=== PATIENT | male | born 1980 | race Caucasian/White ===

== ENCOUNTER 2018-03-14 12:15 | Emergency (ER) | payer BC ==
[2018-03-14 13:14] VITALS: BP 190/96
--- NOTE | 2018-03-14 13:31 | UC ---
Skin Complaint HPI - HPI Summary HPI Summary: 3 wks of worsening redness, pain in feet, skin cracking/dryness on tops of both feet. 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 - History of Current Complaint Chief Complaint: UCSkin Time Seen by Provider: 03/14/18 13:13 Stated Complaint: BILATERAL FOOT COMPLAINT Hx Obtained From: Patient Onset/Duration: Gradual Onset Current Severity: Moderate Pain Intensity: 4 Pain Scale Used: 0-10 Numeric Location: Foot (Right), Foot (Left) Character: Pain, Redness Aggravating Factor(s): Clothing, Touch Alleviating Factor(s): OTC Creams/Salves - Allergy/Home Medications Allergies/Adverse Reactions: Allergies Allergy/AdvReac Type Severity Reaction Status Date / Time Penicillins Allergy Unknown Verified 03/14/18 13:07 Reaction Details Home Medications: Home Medications Fluticasone NASAL SPRAY 50MCG* [Flonase NASAL SPRAY 50MCG*] 2 spray BOTH NARES DAILY 03/14/18 [History Confirmed 03/14/18] Review of Systems All Other Systems Reviewed And Are Negative: Yes Constitutional: Positive: Negative Skin: Positive: Rash, Other - cracked red skin on tops of both feet. Respiratory: Positive: Negative Cardiovascular: Positive: Negative Neurological: Positive: Negative PMH/Surg Hx/FS Hx/Imm Hx - Additional Past Medical History Additional PMH: chronic eczema-treatment triamcinolone. Endocrine History: Other - obesity Cardiovascular History: Hypertension - Surgical History Surgical History: Yes Surgery Procedure, Year, and Place: vasectomy. L index finger - Family History Known Family History: Positive: None - Social History Alcohol Use: None Substance Use Type: None Smoking Status (MU): Former Smoker When Did the Patient Quit Smoking/Using Tobacco: 10 years ago - Immunization History Most Recent Tetanus Shot: SPRING 2014 Physical Exam Triage Information Reviewed: Yes Appearance: Well-Appearing, No Pain Distress Vital Signs: Initial Vital Signs Temp 97.5 F 03/14/18 13:09 Pulse 94 03/14/18 13:09 Resp 16 03/14/18 13:09 BP 190/96 03/14/18 13:09 Pulse Ox 98 03/14/18 13:09 Vital Signs Reviewed: Yes Musculoskeletal Exam: Normal Skin: Positive: Breakdown - dorsal aspect bilateral feet, opened areas w/ erythema, tenderness. No purulent or clear draining. toes are spared. toenails normal. Course/Dx - Course Course Of Treatment: 3 wks hx of worsening eczema flare up now presenting w/ superificial infections. No signs of cellulitis at this point but tx'ing w/ antibx given severity of opened areas. PO short course of steroid burst , ibu for pain. Will refill triamcinolone for maintenance. Advised daily use of vaseline. he will be f/u w/ regular melting operator. also had elevated bp, we discussed importance of controlling this. he will f/u w/ pcp. no cardiac symptoms today. - Differential Diagnoses - Skin Complaint Differential Diagnoses: Cellulitis, Contact Dermatitis, Eczema, Impetigo, Lymphangitis, Viral Exanthem - Diagnoses Provider Diagnoses: superificial skin infection (bilateral feet), Hypertension. Discharge - Sign-Out/Discharge Documenting (check all that apply): Patient Departure All imaging exams completed and their final reports reviewed: No Studies - Discharge Plan Condition: Good Disposition: HOME Prescriptions: Ibuprofen 600 mg PO TID #21 tablet predniSONE [Prednisone 20 MG TAB] 20 mg PO DAILY #3 tablet Sulfamethox/Trimethoprim SS* [Bactrim SS 400/80 TAB*] 1 tab PO BID #10 tab Triamcinolone 0.1% OINT(NF) [Kenalog 0.1% OINT(NF)] 1 applic TOPICAL BID #1 tub unit Patient Education Materials: Cellulitis (ED), Chronic Hypertension (ED) Referrals: No Primary Care Phys,NOPCP [Primary Care Provider] - Additional Instructions: follow up with your regular melting operator. I am prescribing an oral dose of steroids to calm down inflammation. I am prescribing a few days of antibiotics to help with the superficial infection. And I am refilling your topical steroid which you should use until redness resolves. Please f/u w/ your pcp re : your h;igh blood pressure. - Billing Disposition and Condition Condition: GOOD Disposition: Home - Attestation Statements Provider Attestation: Per institutional requirements, I have reviewed the chart, however, I was not consulted specifically or made aware of this patient by the midlevel provider. I did not personally evaluate, interact with , or disposition this patient.
== END 2018-03-14 13:50 | disposition home or self-care (01) ==
LOC: UCCORT 12:15
DX: L08.89 Other specified local infections of the skin and subcutaneous tissue (principal); M79.672 Pain in left foot; I10 Essential (primary) hypertension; E66.9 Obesity, unspecified; M79.671 Pain in right foot; Z88.0 Allergy status to penicillin; Z87.891 Personal history of nicotine dependence
CPT/HCPCS: 99212; G0463

== ENCOUNTER 2018-06-28 07:20 | Emergency (ER) | payer BC ==
[2018-06-28 07:53] VITALS: BP 127/84
--- NOTE | 2018-06-28 08:04 | UC ---
Skin Complaint HPI - HPI Summary HPI Summary: soar spot right lower leg x 2 days the area is painful to touch, red, swollen no fever, no chills, no injury - History of Current Complaint Chief Complaint: UCRespiratory Time Seen by Provider: 06/28/18 07:56 Stated Complaint: R LEG SKIN CONCERN (ALSO HERE FOR LAB) Hx Obtained From: Patient Onset/Duration: Gradual Onset, Lasting Days - 2, Still Present Timing: Constant Onset Severity: Moderate Current Severity: Moderate Pain Intensity: 97 Location: Discrete - right lower leg Character: Swelling, Pain, Redness, Raised, Painful Aggravating Factor(s): Touch Alleviating Factor(s): Nothing Associated Signs & Symptoms: Positive: Tenderness - Allergy/Home Medications Allergies/Adverse Reactions: Allergies Allergy/AdvReac Type Severity Reaction Status Date / Time Penicillins Allergy Unknown Verified 06/28/18 07:46 Reaction Details Home Medications: Home Medications Fluticasone NASAL SPRAY 50MCG* [Flonase NASAL SPRAY 50MCG*] 2 spray BOTH NARES DAILY 06/28/18 [History Confirmed 06/28/18] Lisinopril TAB* [Prinivil TAB*] 10 mg PO DAILY 06/28/18 [History Confirmed 06/28] PMH/Surg Hx/FS Hx/Imm Hx Cardiovascular History: Hypertension Respiratory History: Asthma - Surgical History Surgical History: Yes Surgery Procedure, Year, and Place: vasectomy. L index finger - Family History Known Family History: Positive: Hypertension - Social History Alcohol Use: None Substance Use Type: None Smoking Status (MU): Former Smoker When Did the Patient Quit Smoking/Using Tobacco: 10 years ago - Immunization History Most Recent Tetanus Shot: SPRING 2014 Review of Systems All Other Systems Reviewed And Are Negative: Yes Constitutional: Positive: Negative. Negative: Fever, Chills, Fatigue Eyes: Positive: Negative ENT: Positive: Negative Respiratory: Positive: Negative Cardiovascular: Positive: Negative Musculoskeletal: Negative: Arthralgia, Myalgia Is Patient Immunocompromised?: No Physical Exam Triage Information Reviewed: Yes Appearance: Well-Appearing, No Pain Distress, Obese Vital Signs: Initial Vital Signs Temp 97.5 F 06/28/18 07:49 Pulse 69 06/28/18 07:49 Resp 16 06/28/18 07:49 BP 127/84 06/28/18 07:49 Pulse Ox 97 06/28/18 07:49 Vital Signs Reviewed: Yes Eye Exam: Normal Eyes: Positive: Conjunctiva Clear ENT: Positive: Normal ENT inspection, Hearing grossly normal, Pharynx normal Neck: Positive: Supple, Nontender, No Lymphadenopathy Respiratory: Positive: Chest non-tender, Lungs clear, Normal breath sounds Cardiovascular: Positive: RRR, No Murmur, Pulses Normal Skin: Positive: Other - area of erythema right lower leg about 5 cm in diameter , swollen, warm and tender to touch Course/Dx - Diagnoses Provider Diagnosis: Cellulitis of right leg Discharge - Sign-Out/Discharge Documenting (check all that apply): Patient Departure All imaging exams completed and their final reports reviewed: No Studies - Discharge Plan Condition: Stable Disposition: HOME Prescriptions: Clindamycin Cap(NF) [Clindamycin Cap 300 mg Cap(NF)] 300 mg PO Q6H #40 cap Patient Education Materials: Cellulitis (ED) Referrals: Shantell Lange MD [Primary Care Provider] - 5 Days - Billing Disposition and Condition Condition: STABLE Disposition: Home
== END 2018-06-28 08:04 | disposition home or self-care (01) ==
LOC: UCCORT 07:20
DX: L03.115 Cellulitis of right lower limb (principal); E66.9 Obesity, unspecified; I10 Essential (primary) hypertension; J45.909 Unspecified asthma, uncomplicated; Z79.899 Other long term (current) drug therapy; Z88.0 Allergy status to penicillin; Z87.891 Personal history of nicotine dependence
CPT/HCPCS: 99212; G0463

== ENCOUNTER 2019-05-05 15:37 | Emergency (ER) | payer BC ==
--- NOTE | 2019-05-05 15:40 | UC ---
FLU HPI - HPI Summary HPI Summary: 38 yo male presents with flu-like symptoms. He tells me that last night around midnight he developed loose stools and this morning has felt feverish with fatigue and body aches. He has been taking ibuprofen and tylenol that is helping. He did not get a flu shot this year. Has been drinking water all day, but not eating due to diarrhea. Diarrhea has slowed as the day has progressed. Denies sinus symptoms, sore throat, cough, chest pain, SOB, abdominal pain, vomiting, back pain, dysuria. Last tylenol/ibuprofen was yesterday - History of Current Complaint Stated Complaint: DIARRHEA/CHILLS/BODY ACHES Time Seen by Provider: 05/05/19 15:40 Hx Obtained From: Patient Onset/Duration: Sudden Onset Severity Currently: Mild Severity Initially: Mild Pain Intensity: 3 Pain Scale Used: 0-10 Numeric - Allergy/Home Medications Allergies/Adverse Reactions: Allergies Allergy/AdvReac Type Severity Reaction Status Date / Time Penicillins Allergy Unknown Verified 05/05/19 15:49 Reaction Details PMH/Surg Hx/FS Hx/Imm Hx Cardiovascular History: Hypertension Respiratory History: Asthma - Surgical History Surgical History: Yes Surgery Procedure, Year, and Place: vasectomy. L index finger - Family History Known Family History: Positive: None - Social History Lives: With Family Alcohol Use: None Substance Use Type: None Smoking Status (MU): Former Smoker When Did the Patient Quit Smoking/Using Tobacco: 10 years ago - Immunization History Most Recent Tetanus Shot: SPRING 2014 Review of Systems All Other Systems Reviewed And Are Negative: No Constitutional: Positive: Chills, Fatigue, Other - Body aches Skin: Positive: Negative Eyes: Positive: Negative ENT: Positive: Negative Respiratory: Positive: Negative Cardiovascular: Positive: Negative Gastrointestinal: Positive: Diarrhea Genitourinary: Positive: Negative Neurological: Positive: Negative Psychological: Positive: Negative Physical Exam - Summary Physical Exam Summary: GENERAL: NAD. WDWN. No pain distress. SKIN: No rashes, sores, lesions, or open wounds. HEENT: Head: AT/NC Eyes: EOM intact. Conjunctiva clear without inflammation or discharge. Ears: Hearing grossly normal. TMs intact, no bulging, erythema, or edema. Nose: Nasal mucosa pink and moist. NTTP maxillary and frontal sinus. Throat: Posterior oropharynx without exudates, erythema, or tonsillar enlargement. Uvula midline. NECK: Supple. Nontender. No lymphadenopathy. CHEST: CTAB. No r/r/w. No accessory muscle use. Breathing comfortably and in no distress. CV: RRR. Pulses intact. Cap refill <2seconds ABDOMEN: Soft. NTTP. No distention or guarding. No CVA tenderness. Bowel sounds present NEURO: Alert. PSYCH: Age appropriate behavior. Triage Information Reviewed: Yes Vital Signs: Vital Signs: Temp Pulse Resp BP Pulse Ox 100.7 F 101 20 127/69 96 05/05/19 15:50 05/05/19 15:50 05/05/19 15:50 05/05/19 15:50 05/05/19 15:50 Laboratory Tests 05/05/19 15:59 Influenza A (Rapid) Negative Influenza B (Rapid) Negative Vital Signs Reviewed: Yes Flu Course/Dx - Course Course Of Treatment: POC flu negative. Symptoms are remarkably flu-like and will treat as viral illness. Advised rest, fluids, and continue tylenol/ibuprofen as directed for discomfort. Be rechecked if symptoms do not improve - Differential Dx/Diagnosis Provider Diagnosis: Viral syndrome Discharge ED - Sign-Out/Discharge Documenting (check all that apply): Patient Departure All imaging exams completed and their final reports reviewed: No Studies - Discharge Plan Condition: Stable Disposition: HOME Patient Education Materials: Influenza (DC), Viral Syndrome (ED) Referrals: Shantell Lange MD [Primary Care Provider] - Additional Instructions: Your flu test was negative today, but your symptoms are very flu-like. I recommend that you drink plenty of fluids and advance your diet as tolerated. Continue taking tylenol/ibuprofen as directed for discomfort. If your symptoms have not improved in 3-5 days, please be rechecked --- or sooner if symptoms worsen. Most people with the flu recover within one to two weeks without treatment. However, serious complications of the flu can occur. Go to the ER immediately if you: -- You feel short of breath or have trouble breathing -- You have pain or pressure in your chest or stomach -- You have signs of being dehydrated, such as dizziness when standing or not passing urine -- You feel confused -- You cannot stop vomiting or you cannot drink enough fluids There are several groups of people who are at increased risk for flu complications. These include women, young children (<5 years of age and especially <2 years of age), people older than 65 years of age, and people with certain diseases such as chronic lung disease (such as asthma), heart disease, diabetes, immunosuppressing conditions (such as HIV infection or transplantation), and some other diseases. Treat symptoms Treating the symptoms of influenza can help you to feel better but will not make the flu go away faster. -- Rest until the flu is fully resolved, especially if the illness has been severe. -- Fluids Drink enough fluids so that you do not become dehydrated. One way to records and tape recordings engineer if you are drinking enough is to look at the color of your urine. Normally, urine should be light yellow to nearly colorless. If you are drinking enough, you should pass urine every three to five hours. -- Acetaminophen (sample brand name: Tylenol) can relieve fever, headache, and muscle aches. Aspirin and medicines that include aspirin (eg, bismuth subsalicylate [sample brand name: Pepto-Bismol]) are not recommended for children under 18 because aspirin can lead to a serious disease called Elijah syndrome. -- Cough medicines are not usually helpful; cough usually resolves without treatment. We do not recommend cough or cold medicine for children under age 6 years. - Billing Disposition and Condition Condition: STABLE Disposition: Home
--- OUTSIDE RECORDS SUMMARY | 2019-05-05 15:48 | XMS REPORT | Continuity of Care Document ---
:1980 External Reference #:[id number] Author Name Shantell Lange MD (transmitted by agent of provider Tiffanie Liz) Address [address] [facility], [place] [address] Care Team Providers Name Role Phone Shantell Lange MD - Internal Medicine Care Team Information [employer] [phone] Problems Active Problems Provider Date Asthma Kali Lerner M.D. Onset: 10/11/2014 Shoulder joint pain Kali Lerner M.D. Onset: 10/13/2014 Lateral epicondylitis Gaurav Isabel M.D. Onset: 11/09/2014 Essential hypertension Justin Deshpande M.D.,FACP Onset: 07/25/2015 Prediabetes Shantell Lange MD Onset: 07/01/2018 Acute upper respiratory infection, Eric Neff M.D. Onset: 04/10/2017 unspecified Obstructive sleep apnea syndrome Eric Neff M.D. Onset: 12/02/2015 Obesity Eric Neff M.D. Onset: 12/02/2015 Social History Type Date Description Comments Sex Unknown ETOH Use Consumed 1 quart of 2 Lts per day x 5 liquor per day in the years. Quit in past 2005. Tobacco Use Start: Unknown End: Patient is a former 1 or 1 and 1/2 PPD Unknown smoker for 8-9 years. Quit in 2007 Recreational Drug Use Denies Drug Use Smoking Status Reviewed: 04/13/19 Patient is a former 1 or 1 and 1/2 PPD smoker for 8-9 years. Quit in 2007 Exercise Type/Frequency Does not exercise Allergies, Adverse Reactions, Alerts Active Allergies Reaction Severity Comments Date Penicillins childhood 10/11/2014 Medications Active Medications SIG Qnty Indications Ordering Date Provider Benzonatate take one capsule 30caps J06.9 Shantell Lange MD 04/13/2019 100mg every 8 hours as Capsules needed Albuterol Sulfate Inhale 2 Puffs By 54units Shantell Lange MD 05/26/2018 HFA Mouth Four Times 108(90Base) Daily as Needed mcg/Act Aerosol Lisinopril Take 1 Tablet By 90tabs I10 Shantell Lange MD 05/26/2018 10mg Mouth Every Day Tablets Hydroxyzine HCL Take 1 Tablet By 14tabs R21 Shantell Lange MD 08/29/2017 25mg Mouth Every Night Tablets as Needed For Itching Albuterol Sulfate 1 vial via 180ml J45.909 Eric 04/10/2017 nebulizer 4 times Aiden Neff (2.5mg/3ML) 0.083% daily as needed Nebulizer Nebulizer use with albuterol 1units J45.909 Eirc 04/10/2017 Device neb solution every Aiden Neff 6 hours as needed Montelukast Sodium Take 1 Tablet By 90tabs J45.909 Haresh Harvey 04/10/2017 Mouth Every Day Aiden Rankin 10mg Tablets Fluticasone Use 2 Sprays In 96units Sameer Roman NP Propionate Each Nostril Twice 50mcg/Act Daily Suspension Advair Diskus 1 puff by mouth 60units Shantell Lange MD twice a day 500-50mcg/Dose Aerosol Immunizations CPT Code Status Date Vaccine Lot # [id number] Given 08/26/2015 Pneumonia Vaccine [id number] Given 10/11/2014 Tdap - Tetanus/Diptheria/Acellular Pertussis [id number] Vital Signs Date Vital Result Comment 04/13/2019 3:56pm Height 71 inches 5'11" Weight 321.00 lb Heart Rate 72 /min BP Systolic 138 mmHg manual BP Diastolic 90 mmHg manual BP Systolic Sitting 143 mmHg machine BP Diastolic Sitting 93 mmHg machine Body Temperature 97.5 F O2 % BldC Oximetry 95 % BMI (Body Mass Index) 44.8 kg/m2 07/01/2018 4:12pm Height 71 inches 5'11" Weight 311.00 lb Heart Rate 68 /min BP Systolic Sitting 127 mmHg BP Diastolic Sitting 77 mmHg O2 % BldC Oximetry 96 % BMI (Body Mass Index) 43.4 kg/m2 Results Description No Information Available Procedures Description No Information Available Medical Devices Description No Information Available Encounters Description No Information Available Assessments Date Code Description Provider 04/13/2019 J06.9 Acute upper respiratory infection, unspecified Shantell Lange MD Plan of Treatment 04/13/2019 - Shantell Lange MDJ06.9 Acute upper respiratory infection, unspecifiedNew Medication:Benzonatate 100 mg - take one capsule every 8 hours as neededComments:Try to take sudafed ( plain) ; over the counter to see if that will help with secretion Functional Status Description No Information Available Mental Status Description No Information Available Referrals Description No Information Available
[2019-05-05 15:53] VITALS: BP 127/69
[2019-05-05 16:10] LABS: Influenza A Molecular NEGATIVE (Negative); Influenza B Molecular NEGATIVE (Negative)
== END 2019-05-05 16:26 | disposition home or self-care (01) ==
LOC: UCCORT 15:37
DX: B34.9 Viral infection, unspecified (principal); R19.5 Other fecal abnormalities; R53.83 Other fatigue; R52 Pain, unspecified; I10 Essential (primary) hypertension; J45.909 Unspecified asthma, uncomplicated; R19.4 Change in bowel habit; Z88.0 Allergy status to penicillin; Z87.891 Personal history of nicotine dependence
CPT/HCPCS: 99211; G0463